=== PATIENT | female | born 1995 | race African-American/Black ===

== ENCOUNTER 2019-02-09 12:53 | Emergency (ER) | payer OTHER ==
[~2019-02-09] VITALS: Ht 149.9 cm; Wt 50.9 kg
[2019-02-09] MEDS ORDERED: CELE1CAP4 PO (12:59)
[2019-02-09] MEDS ORDERED: ACETAMINOPHEN 325 MG TAB PO ONE (14:30)
[2019-02-09 14:49] LABS: EOS # 0.1 10^3/uL (0.0-0.50); EOS % 3.6 % (0.0-3.0); HEMATOCRIT 40.1 % (36.0-47.0); HEMOGLOBIN 13.5 g/dl (12.0-15.5); LYMPH # 1.9 10^3/uL (1.5-6.5); LYMPH % 48.3 % (24.0-44.0); MEAN CORPUSCULAR HEMOGLOBIN 32.1 pg (27.0-33.0); MEAN CORPUSCULAR HGB CONC 33.7 g/dl (32.0-36.5); MEAN CORPUSCULAR VOLUME 95.2 fl (80.0-96.0); MONO # 0.4 10^3/uL (0.0-0.8); NEUTROPHILS # 1.5 10^3/uL (1.8-7.7); NEUTROPHILS % 37.1 % (36.0-66.0); PLATELET COUNT, AUTOMATED 351 10^3/uL (150-450); RED BLOOD COUNT 4.21 10^6/uL (4.00-5.40); WHITE BLOOD COUNT 3.9 10^3/uL (4.0-10.0)
[2019-02-09 15:14] LABS: ALBUMIN 4.2 GM/DL (3.2-5.2); ALT/SGPT 16 U/L (12-78); BILIRUBIN,DIRECT 0.3 MG/DL (0.0-0.2); BLOOD UREA NITROGEN 9 MG/DL (7-18); CARBON DIOXIDE LEVEL 26 MEQ/L (21-32); CHLORIDE LEVEL 105 MEQ/L (98-107); CREATININE FOR GFR 0.72 MG/DL (0.55-1.30); GLOMERULAR FILTRATION RATE > 60.0 (>60); GLUCOSE, FASTING 75 MG/DL (70-100); LIPASE 86 U/L (73-393); SODIUM LEVEL 139 MEQ/L (136-145); TOTAL PROTEIN 7.4 GM/DL (6.4-8.2)
[2019-02-09] MEDS ORDERED: KETO10TAB PO (16:36)
[2019-02-09 16:41] VITALS: BP 117/72
--- NOTE | 2019-02-09 17:06 | REP ---
HISTORY: Right lower quadrant pain. Transvesical and transvaginal imaging was obtained. The uterus measures 6.9 x 2.7 x 3.9 cm. The parenchymal echo pattern is normal. The endometrial echo complex is normal measuring 7 mm in thickness. The right ovary measures 2.5 x 2.6 x 2.4 cm and is within normal limits. The left ovary measures 2.5 x 2.2 x 1.9 cm and is within normal limits. The right ovarian RI is 0.67 and the left ovarian RI is 0.51. The urinary bladder measures 2 x 2 x 5 cm. IMPRESSION: Pelvic ultrasonography is within normal limits. Electronically Signed by Anjel Caldera DO 02/09/2019 06:01 P
== END 2019-02-09 16:44 | disposition home or self-care (01) ==
LOC: M ED 12:53
DX: N83.291 Other ovarian cyst, right side (principal); N80.9 Endometriosis, unspecified; Z79.899 Other long term (current) drug therapy

== ENCOUNTER 2019-09-12 07:28 | Day surgery (SDC) | payer OTHER ==
[~2019-09-12] VITALS: Ht 149.9 cm; Wt 52.6 kg
[~2019-09-12 07:28] MED LIST: CELE1CAP4 PO; IBUP-1022 PO; KETO10TAB PO; LIDOCAINE 1% MDV 20ML VIAL SQ PRN; LR 1,000 ML IV ONE
[2019-09-12] MEDS ORDERED: BUPIVACAINE HCL 0.25% 30 ML VIAL As Ordered ONE (08:03)
[2019-09-12] MEDS ORDERED: SILVER NITRATE APPLICATOR As Ordered ONE (08:03)
[2019-09-12] MEDS ORDERED: METHYLENE BLUE 0.5% (5MG/ML) 10 ML AMP (PROVAYBLUE)(Q9968 PER 1MG) As Ordered ONE (08:03)
[2019-09-12 08:08] LABS: HEMATOCRIT 40.5 % (36.0-47.0); HEMOGLOBIN 13.1 g/dl (12.0-15.5); MEAN CORPUSCULAR HEMOGLOBIN 30.1 pg (27.0-33.0); MEAN CORPUSCULAR HGB CONC 32.3 g/dl (32.0-36.5); MEAN CORPUSCULAR VOLUME 93.1 fl (80.0-96.0); PLATELET COUNT, AUTOMATED 398 10^3/uL (150-450); RED BLOOD COUNT 4.35 10^6/uL (4.00-5.40); WHITE BLOOD COUNT 4.3 10^3/uL (4.0-10.0)
[2019-09-12] MEDS ORDERED: LIDOCAINE 2% INJ 100 MG/5 ML SDV (FOR ANES.) As Ordered ONE (08:11)
[2019-09-12] MEDS ORDERED: ROCURONIUM BROMIDE 50 MG/5 ML VIAL As Ordered ONE (08:11)
[2019-09-12] MEDS ORDERED: propofoL 200 MG/20 ML VIAL As Ordered ONE (08:11)
[2019-09-12] MEDS ORDERED: fentaNYL 250 MCG/5 ML INJECTION (J3010) As Ordered ONE (08:12)
[2019-09-12] MEDS ORDERED: MIDAZOLAM INJ 2 MG/2 ML VIAL (J2250) As Ordered ONE (08:12)
[2019-09-12] MEDS ORDERED: METOCLOPRAMIDE INJ 10MG/2ML VIAL (J2765) As Ordered ONE (09:32)
[2019-09-12] MEDS ORDERED: ONDANSETRON 4MG/2ML VIAL (J2405) As Ordered ONE ×2 (09:32→11:09)
[2019-09-12] MEDS ORDERED: dexameTHASONE 4 MG/ML 1ML VIAL (J1100) As Ordered ONE (09:32)
[2019-09-12] MEDS ORDERED: KETOROLAC 60 MG/2 ML VIAL (J1885) As Ordered ONE (09:32)
[2019-09-12] MEDS ORDERED: ACETAMINOPHEN 1000MG 100ML IV BTL (OFIRMEV) (J0131 PER 10MG) As Ordered ONE (09:33)
[2019-09-12] MEDS ORDERED: SUGAMMADEX SODIUM 500 MG/5 ML VIAL (BRIDION) As Ordered ONE (09:40)
[2019-09-12] MEDS ORDERED: oxyCODONE 5MG TAB As Ordered ONE (11:34)
[2019-09-12] MEDS ORDERED: fentaNYL 100 MCG/2 ML INJECTION (J3010) As Ordered ONE (11:34)
[2019-09-12] MEDS: oxyCODONE 5MG TAB PO PRN ×2 (11:35→13:39)
[2019-09-12] MEDS: fentaNYL 100 MCG/2 ML INJECTION (J3010) IV PRN ×2 (11:35→11:47)
[2019-09-12] MEDS ORDERED: HYDROMORPHONE HCL 0.5 MG/ 0.5 ML SYRINGE (J1170 PER 1) IV PRN (11:45)
[2019-09-12] MEDS ORDERED: LR 1,000 ML IV SCH (11:45)
[2019-09-12] MEDS ORDERED: ONDANSETRON 4MG/2ML VIAL (J2405) IV PRN (11:45)
[2019-09-12] MEDS ORDERED: FUROSEMIDE 20 MG/2 ML VIAL (J1940) As Ordered ONE (12:16)
[2019-09-12] MEDS ORDERED: FUROSEMIDE 20 MG/2 ML VIAL (J1940) IV ONE (12:30)
--- NOTE | 2019-09-12 12:38 | REP ---
CHEST, SINGLE VIEW: Single view of the chest is performed. There is linear discoid atelectasis in the lung bases. No infiltrate is seen and there is no pneumothorax. Heart is normal in size and the mediastinal silhouette is unremarkable. Electronically Signed by Karsten Blake MD 09/12/2019 01:01 P
[2019-09-12] MEDS ORDERED: diphenhydrAMINE INJ 50MG/ML VIAL (J1200) As Ordered ONE (13:11)
[2019-09-12] MEDS ORDERED: diphenhydrAMINE INJ 50MG/ML VIAL (J1200) IV ONE (13:30)
[2019-09-12 14:45] VITALS: BP 107/56
--- NOTE | 2019-09-12 18:34 | POST-OPPD ---
Postoperative Procedure Note Date Of Procedure: Sep 12, 2019 PREOPERATIVE DIAGNOSIS: 1) chronic pelvic pain 2) infertility POSTOPERATIVE DIAGNOSIS: 1) chronic pelvic pain 2) infertility 3) endometriosis 4) occluded left fallopian tube. FINDINGS: see below PROCEDURE: Operative laparoscopy with tissue biopsy and chromopertubation SURGEON: Dennis Dominguez DO CUSTOMER RELATIONS CONSULTANT: none ANESTHESIA: general anesthesia SPECIMENS: left anterior cul-de-sac peritoneum, left uterosacral, posterior cul-de-sac ESTIMATED BLOOD LOSS: 100cc REPLACED: 1500cc LR DRAINS: 50cc urine COMPLICATIONS: none POSTOPERATIVE CONDITION: none Detailed description of procedure: Indication: Patient is a 24 yo G0 with infertility and chronic pelvic pain desiring surgical evaluation of the pelvis. Findings: Bimanual: anteverted uterus, mobile Laparoscopic findings: Endometriotic lesions and scarred peritoneum along medial left uterosacral ligament, posterior cu-de-sac and left anterior cul-de-sac. Uterus is pulled to left side by scar tissue. Normal appearing uterus, bilateral ovaries and fallopian tubes. Liver edge and gallbladder normal appearing. Chromopertubation shows fill and spill of right fallopian tube. No fill and spill of left fallopian tube. Description of procedure: The risks, benefits, indications and alternatives of the procedure were reviewed with the patient and informed written consent was obtained. The patient was taken to the operating room with IV running. She was placed under general anesthesia with endotracheal tube. Arms tucked. Patient placed in lithotomy. The abdomen, vagina and perineum were prepped and draped in the usual sterile fashion. Mathew inserted. Uterus sounds to 7cm. Zumi uterine manipulator placed. Small incision made in umbilicus. Veres needle introduced. Saline drop test confirmed intraabdominal placement. Abdomen insufflated with CO2. Five mm trocar introduced under direct visualization. Surveys reviews no bowel injury or bleeding. Two 5mm ports placed left lower abdomen with direct visualization. Findings as above. Chromopertubation performed using methylene blue mixed with saline. Sharp peritoneal stripping performed around area of scarred tissue and endometriotic lesions. tissue sent to pathology. Cautery and Blaine used for hemostasis. Pelvis irrigated and suctioned. Port sites visualized after removal without bleeding. Abdomen desuflated. Camera and instruments removed from abdomen. Incision sites closed with 4-O monocryl and dermabond. Mathew and uterine manipulator removed from the vagina. Count correct x 2. Patient was taken out of OR in stable condition. DO NEERAJ Dominguez LUAT N. DO Sep 12, 2019 11:56
== END 2019-09-12 15:23 | disposition home or self-care (01) ==
LOC: M SDC 07:28
PROVIDERS: ATTEND Obstetrics & Gynecology
DX: N97.1 Female infertility of tubal origin (principal); N80.0 Endometriosis of uterus
CPT/HCPCS: 36415; 58350; 58578; 71045; 81025; 85027; 86850; 86900; 86901; 88305; J0131; J1100; J1885; J1940; J2250; J2405; J2765; J3010; Q9968

== ENCOUNTER → 2020-08-11 | Outpatient (CLI) | payer SELFPAY ==
[~2020-08-11] MED LIST changes: -LIDOCAINE 1% MDV 20ML VIAL SQ PRN; -LR 1,000 ML IV ONE; +MULTTAB20 PO
== END ==
LOC: M LABSMTC 09:12
PROVIDERS: ATTEND Pediatrics
DX: Z20.822 Contact with and (suspected) exposure to COVID-19 (principal)

== ENCOUNTER → 2020-09-27 | Outpatient (CLI) | payer OTHER ==
--- NOTE | 2020-09-27 09:55 | REP ---
INDICATION: LT INVERTED NIPPLE FOR 9 MONTH WITH INTERMITTENT PAIN. COMPARISON: None TECHNIQUE: Real-time sonographic evaluation of left breast performed. FINDINGS: At the 10 o'clock position of the left breast 4 cm from the nipple there is a hypoechoic nodule which measures 1.3 x 0.8 x 1.4 cm. Is mildly lobulated. There is internal blood flow with Doppler evaluation. In the retroareolar region there is a lobulated hypoechoic nodule which measures 1.3 x 0.9 x 1.5 cm. This also demonstrates blood flow internally with Doppler evaluation. IMPRESSION: BIRADS/ACR category 4, suspicious ultrasound left breast. 2 hypoechoic nodules are identified demonstrating internal blood flow compatible with solid lesions. One is located at 10 o'clock position and the other is retroareolar. Recommend ultrasound-guided biopsy of both nodules. RECOMMENDATION: As above. <Electronically signed by Karsten Blake > 09/27/20 0951
== END ==
LOC: M WHC 06:59
PROVIDERS: ATTEND Obstetrics & Gynecology
DX: O99.891 Other specified diseases and conditions complicating pregnancy (principal); O00-O9A Pregnancy, childbirth and the puerperium; R92.8 Other abnormal and inconclusive findings on diagnostic imaging of breast; N64.4 Mastodynia

== ENCOUNTER → 2020-10-22 | Outpatient (CLI) | payer OTHER ==
[2020-10-22 09:04] VITALS: BP 110/78
--- NOTE | 2020-10-22 16:54 | REP ---
INDICATION: 2 HYPOECHOIC NODULES,US GUIDED BIOPSY X2. COMPARISON: None. TECHNIQUE: The procedure was performed under the direct supervision of Dr. Blake. The patient has a history of a 1.3 x 0.8 x 1.4 cm hypoechoic nodule at the 10 o'clock position of the left breast and a 1.3 x 0.9 x 1.5 cm lobulated hypoechoic nodule in the retro-areolar region seen on a previous ultrasound dated 09/27/2020. Both nodules are requested for biopsy The risks and benefits of the procedure were explained to the patient and informed consent was obtained. The 2 nodules were localized using ultrasound guidance. The skin was prepped and draped in a sterile fashion. The nodule at the 10 o'clock position was addressed 1st. 1% lidocaine was used as a local anesthetic. Using ultrasound guidance a 14 gauge coaxial needle biopsy system was inserted and 6 core biopsy samples were obtained. A marker clip (HydroMARK shape 3) was placed at the biopsy site. The nodule in the retro-areolar region was then addressed. 1% lidocaine was used as a local anesthetic. Using ultrasound guidance a 14 gauge coaxial needle biopsy system was inserted and 6 core biopsy samples were obtained. A marker clip (HydroMARK shape 4) was placed at the biopsy site. The patient tolerated the procedure well and there were no immediate complications. After the appropriate amount of monitored convalescence, the patient was discharged from the department. FINDINGS: None IMPRESSION: Ultrasound-guided left breast biopsy with marker clip placement. 10 o'clock position (HydroMARK shape 3) Retro-areolar (HydroMARK shape 4) <Electronically signed by Sedrick Ramirez > 10/22/20 [id number] <Electronically signed by Karsten Blake > 10/22/20 0901
== END ==
LOC: M WHCPRO 06:20
PROVIDERS: ATTEND Obstetrics & Gynecology
DX: O26.893 Other specified pregnancy related conditions, third trimester (principal); D24.2 Benign neoplasm of left breast; O92.79 Other disorders of lactation; Z3A.32 32 weeks gestation of pregnancy

== ENCOUNTER 2020-11-11 21:22 | Inpatient (IN) | payer OTHER ==
[~2020-11-11] VITALS: Ht 149.9 cm; Wt 61.5 kg
[2020-11-11 21:43] VITALS: BP 128/77
[2020-11-11] MEDS ORDERED: LIDOCAINE 1% MDV 20ML VIAL INFIL PRN (22:10)
[2020-11-11] MEDS ORDERED: OXYTOCIN DRIP 30 UNITS in IV 1 EA IV PRN (22:10)
[2020-11-11] MEDS ORDERED: LACTATED RINGER'S 1000 ML IV STA (22:10)
[2020-11-11] MEDS ORDERED: PENICILLIN G POTASSIUM IV 5 MU in D5W MINI-BAG PLUS 100 ML IV STA (22:10)
--- NOTE | 2020-11-11 22:49 | HPEPDOC ---
Obstetrical History & Physical General Date of Admission November 11, 2020 at 22:12 History of Present Illness 25 yo at 36+5 weeks gestation by LMP of [id number] c/w 9+0 week presented to L&D with the complaint of a gush of clear fluid about an hour ago followed by continuous leaking ever since. She also endorses intermittent contractions. She denies any bleeding. She endorses movement. Chief Complaint: LOF, pre-term Information Provided By: Patient Age: 25 : 3 Term: 0 Pre-term: 0 Abortions: 2 Livin Care Care: Good Care Dating Final EDC: Dec 04, 2020 Final EDC for Daily Update: Dec 04, 2020 Final EDC by: LMP LMP: Feb 28, 2020 (SHAWN of [id number] set by LMP of [id number] c/w 9+0 week ) Antepartum Course Diagnos(e)s Endometriosis? 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) Past Medical History Medical History Endometriosis Chronic back pain Surgical History: Appendectomy, Sagle teeth Family History Significant Family History: No pertinent family hx Social History Marital Status: Family situation: Spouse/partner home Psychosocial History: No pertinent psych hx * Smoker: non-smoker Drugs: denies Imunizations Tdap status: current Influenza Status: current Allergies Coded Allergies: No Known Drug Allergies (Verified Allergy, Unknown, 10/22/20) Medications Scheduled No122/Iron/Folic Acid ( Multi Tablet) 1 Each Tablet, 1 TAB PO DAILY Physical Examination Physical Examination GENERAL: Alert and oriented times three. ABDOMEN: Gravid and non-tender to touch. FETUS: Is vertex (VTX) by sterile vaginal examination (SVE) EXTREMITIES: No edema. 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) Glucose Tolerance Test: 107 Anatomy Ultrasound Placenta Location: Anterior Normal Anatomy: Yes Placenta Previa: No Steroid Therapy Steroid Therapy: Yes Date #1: November 11, 2020 Reason premature rupture of membranes Vaginal Examination Dilation: 1cm Effacement: 50% Station: -2 Cervical Consistency: Soft Cervical Position: Middle Presentation: Cephalic presentation Position: Vertex (occiput) Assessment Heart Rate (FHR): 140 Variability: Moderate Accelerations: Positive Decelerations: None Tocometer Contractions: Yes Frequency: irregular Strength: palpated as moderate Assessment/Plan Assessment 25 yo at 36+5 weeks gestation presented to L&D with premature rupture of membranes. Plan Admit. Apply IV fluids. GBS UNK; will start PCN for GBS prophylaxis. Regular diet. BTMZ IM. If labor does not begin spontaneously will start pitocin. Patient candidate for IV analgesia and/or epidural as desired. Anticipate . Labor and Delivery Counseling Vaginal / Operative vaginal delivery / C section counseling We will deliver your baby through the vagina with possible assistance of forceps or vacuum device if needed for maternal or indications. Forceps and vacuum are devices that can assist with vaginal delivery when normal pushing efforts cannot achieve delivery on their own or when delivery is needed in an emergency for baby's well-being. Medications may be required to induce or augment (help) your labor in order to achieve a vaginal delivery. An episiotomy may be required to help your baby to delivery vaginally. You may also require repair of any lacerations or tears of your vagina or vulva that are caused by delivery. In some cases, emergencies can occur that require an emergency section delivery so quickly that there may not be enough time to stop and complete consent forms for section. Understand that if this occurs, your providers will discuss the need for a section with you before they proceed with surgery. section is the delivery of your baby through an incision in your abdomen. In some situations, section may be safer to mom and baby than continuing labor and is only performed when clinically indicated. Risks of vaginal delivery include but are not limited to: Bleeding, infection, injury to the vagina, pelvic structures, injury to baby, damage to the uterus, reactions to anesthesia, uterine rupture, risk of hysterectomy for life threatening bleeding, or . Medications used to induce or augment labor may increase your risk for infection, uterine tachysystole, uterine rupture, heart rate abnormalities, need for emergency delivery or possible hysterectomy, and hemorrhage. Additional risks for use of forceps and vacuum include: increased risk of perineal and vaginal lacerations, risk of urinary or bowel incontinence, increased risk of injury to baby with b ruising, scratches, hematomas on the head, or intracranial bleeding. Ms. Raza appears to understand these risks and elects to proceed with her labor at this location. She also consents to a blood transfusion if necessary. All questions answered. DO GAYLE Ballesteros CHRISTOPHER J. DO November 11, 2020 22:49
[2020-11-11] MEDS: BETAMETHASONE SOLUSPAN 6MG/ML 5ML VIAL (J0702 PER 3MG) IM SCH (22:53)
[2020-11-11] MEDS: LR 1,000 ML IV SCH (23:00)
[2020-11-11 23:06] LABS: HEMATOCRIT 30.7 % (36.0-47.0); HEMOGLOBIN 9.7 g/dl (12.0-15.5); MEAN CORPUSCULAR HEMOGLOBIN 26.3 pg (27.0-33.0); MEAN CORPUSCULAR HGB CONC 31.6 g/dl (32.0-36.5); MEAN CORPUSCULAR VOLUME 83.2 fl (80.0-96.0); PLATELET COUNT, AUTOMATED 311 10^3/uL (150-450); RED BLOOD COUNT 3.69 10^6/uL (4.00-5.40); WHITE BLOOD COUNT 7.2 10^3/uL (4.0-10.0)
[2020-11-12] VITALS (68 sets, daily range): BP systolic 96–183; BP diastolic 54–98
[2020-11-12] MEDS ORDERED: FENTANYL 2MCG/ML ROPIVACAINE 0.2% IN 0.9% NACL 100ML IVBAG As Ordered ONE (00:45)
[2020-11-12] MEDS ORDERED: REFRIGERATOR IV KEYS XX PRN (02:15)
[2020-11-12] MEDS ORDERED: LACTATED RINGER'S 1000 ML IV PRN (02:15)
[2020-11-12] MEDS ORDERED: EPIDURAL COMMENT XX SCH (02:15)
[2020-11-12] MEDS ORDERED: EPIDURAL/PCA KEYS XX PRN (02:15)
[2020-11-12] MEDS ORDERED: NALOXONE INJ 0.4MG/1ML VIAL (J2310 PER 1MG) IV PRN (02:15)
[2020-11-12] MEDS ORDERED: ONDANSETRON 4MG/2ML VIAL IV PRN (02:15)
[2020-11-12] MEDS ORDERED: ePHEDrine SULFATE 25 MG/5 ML(5MG/ML) SYRINGE IV PRN (02:15)
[2020-11-12] MEDS ORDERED: diphenhydrAMINE 50MG/ML VIAL (J1200) IV PRN (02:15)
[2020-11-12] MEDS: FENTANYL/ROPIVACAINE/NACL BAG 100 ML EPIDURAL SCH ×2 (02:53→11:00)
[2020-11-12] MEDS: PENICILLIN G POTASSIUM IV 2.5 MU in IV 1 EA IV SCH ×3 (02:57→11:01)
--- NOTE | 2020-11-12 05:55 | IPNPDOC ---
Text Note Date of Service The patient was seen on 11/12/20. NOTE Patient comfortable with her epidural in place. Cervix: 9/C/-1 per RN exam. FHR Cat I with moderate variability, +accels. Marleen is progressing well without pitocin. She is s/p 2 doses of PCN. Continue current management. Garrick VS,Yoel, I+O VS, Fishbone, I+O Laboratory Tests 11/11/20 22:43 Vital Signs Date Time Temp Pulse Resp B/P (MAP) Pulse Ox O2 Delivery O2 Flow Rate FiO2 11/12/20 01:57 70 18 123/72 (89) 11/12/20 00:50 97.8 I&O- Last 24 Hours up to 6 AM 11/12/20 05:59 Output Total 1125 ml Balance -1125 ml JUDD ARAUJO DO November 12, 2020 05:55
[2020-11-12] MEDS ORDERED: OXYTOCIN 30 UNITS IN 0.9% NaCl 500ML IV BAG (J2590) As Ordered ONE (06:07)
[2020-11-12] MEDS: LR 1,000 ML IV SCH ×3 (07:07→14:58)
--- NOTE | 2020-11-12 09:17 | IPNPDOC ---
Obstetrical Progress Note Date of Service November 12, 2020 Subjective 25 yo at 36w6d with SHAWN of 04 DEC 2020 is admitted for PPROM. She is comfortable with her epidural. She denies headache, chest pain, RUQ pain, and visual changes. She has supportive family at the bedside. Objective Vital Signs Date Time Temp Pulse Resp B/P (MAP) Pulse Ox O2 Delivery O2 Flow Rate FiO2 11/12/20 01:57 70 18 123/72 (89) 11/12/20 00:50 97.8 Trial push with minimal head descent and patient does not have urge to push at this time. Assessment Heart Rate (FHR): 120 Variability: Minimal Accelerations: Present Decelerations: None Tocometer Contractions: Yes Frequency: other (every 3-5 minutes) Sterile Vaginal Examination Dilation: complete Effacement (%): 100% Station: +1 Postion/Presentation: Cephalic presentation Assessment and Plan Age: 25 : 3 Term: 0 Pre-term: 0 Abortions: 2 Livin Weeks & Days 36w6d Status: Reassuring Group B Streptococcus: Unknown Anticipate: Vaginal Delivery Additional Comments Recommended to labor down at this time and will start pushing in 1 hour or sooner if she feels the urge to push CAMERON TOVAR CNM November 12, 2020 09:17
[2020-11-12 09:41] LABS: HEMATOCRIT 33.4 % (36.0-47.0); HEMOGLOBIN 10.4 g/dl (12.0-15.5); MEAN CORPUSCULAR HEMOGLOBIN 26.2 pg (27.0-33.0); MEAN CORPUSCULAR HGB CONC 31.1 g/dl (32.0-36.5); MEAN CORPUSCULAR VOLUME 84.1 fl (80.0-96.0); PLATELET COUNT, AUTOMATED 306 10^3/uL (150-450); RED BLOOD COUNT 3.97 10^6/uL (4.00-5.40); WHITE BLOOD COUNT 12.1 10^3/uL (4.0-10.0)
[2020-11-12 10:12] LABS: ALT/SGPT 11 U/L (12-78); BILIRUBIN,TOTAL 0.5 MG/DL (0.2-1.0); CREATININE FOR GFR 0.71 MG/DL (0.55-1.30); GLOMERULAR FILTRATION RATE > 60.0 (>60); LDH LACTATE DEHYDROGENASE 247 U/L (84-246); URIC ACID 5.6 MG/DL (2.6-6.0)
[2020-11-12] MEDS ORDERED: ACETAMINOPHEN TAB 650MG DOSE (2X325MG) PO PRN (11:35)
[2020-11-12] MEDS ORDERED: METHYLERGONOVINE MALEATE 0.2 MG TAB PO PRN (11:35)
[2020-11-12] MEDS ORDERED: MEASLES,MUMPS,RUBELLA VACCINE INJ (MMR-II) (90707) SC SCH (11:35)
[2020-11-12] MEDS ORDERED: RHOGAM 300 MCG (1500 IU) INJ (J2790) IM SCH (11:35)
[2020-11-12] MEDS ORDERED: IBUPROFEN 600MG TAB PO PRN (11:35)
[2020-11-12] MEDS ORDERED: PROMETHAZINE 25 MG TAB PO PRN (11:35)
[2020-11-12] MEDS ORDERED: DIBUCAINE 1% OINTMENT 30GM TOP PRN (11:35)
[2020-11-12] MEDS ORDERED: ACETAMINOPHEN 500 MG TAB PO PRN (11:35)
--- NOTE | 2020-11-12 11:46 | DNPDOC ---
[facility] Delivery Note Delivery Note Date of the procedure: 12 NOV 2020 Preoperative diagnosis: 1. 25 y/o at 36w6d 2. Active labor 3. GBS unknown 4. O positive 5. PPROM 6. 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 25 y/o G3 now P0121 at 36w6d 2. Active labor 3. GBS unknown 4. O positive 5. PPROM 6. CF carrier, FOB negative Procedure: Delivering Provider: TSERING Perkins CNM, [facility] Cash Room Clerk Back-up: Cody Fritz MD Anesthesia: Epidural EBL: 150 ml Specimens: Cord blood collected. Findings: Live female weighing 5 lb 13 oz, 2640 grams with Apgars of 8 and 9 at 1 and 5 minutes respectively. Complications: delivery Details of the procedure: The patient presented complaining of leaking of clear fluid and was found to be PPROM'd. Patient was 1 cm dilated and was then admitted to L&D. Labor progressed without Pitocin and membranes were ruptured spontaneously for clear fluid.. The patient progressed to fully dilated and entered the second stage of labor, at which point she began to push over an intact perineum. The head was then delivered. The nuchal cord was not noted. The rest of the was delivered. The infant was placed on maternal abdomen and the cord was doubly clamped and cut. Cord blood was collected and a 3 vessel cord was noted. Manual exploration of the uterus was not performed. Uterine tone was firm. Perineum was inspected and no laceration found. Cervical exam was normal. Rectal exam was not noted. Sponge, instrument, and needle counts were correct. The patient tolerated the procedure well and is stable in recovery. Note was written and electronically signed by: TSERING Perkins CNM, [facility] LOPEZ CNM November 12, 2020 11:42
[2020-11-12] MEDS ORDERED: LABETALOL 100MG/20ML VIAL IV STA (12:43)
[2020-11-12] MEDS: LABETALOL 100MG TAB PO SCH ×2 (13:00→21:00)
[2020-11-12] MEDS ORDERED: MAG Sulf (L&D) 4 GM/100 ML 4 GM in IV 1 EA IV ONE (13:00)
[2020-11-12] MEDS: MAG Sulf (OBGYN) 20GM/500ML 20,000 MG in IV 1 EA IV SCH (13:35)
--- NOTE | 2020-11-12 13:46 | IPNPDOC ---
Obstetrical Progress Note Date of Service November 12, 2020 Subjective 25 yo s/p started having severe range BP during her recovery period. She denies headache, chest pain, RUQ pain, and visual changes at this time. She was given IV labetalol x1. Magnesium sulfate was started and she will also start PO labetalol 100 mg BID. She has no complaints at this time. I discussed with her and her family the plan for monitoring PP Pre-eclampsia, magnesium sulfate x24 hours, starting oral labetalol BID, and BP check in 1 week in the clinic. She verbalized understanding and is without any further questions at this time. Objective Vital Signs Date Time Temp Pulse Resp B/P (MAP) Pulse Ox O2 Delivery O2 Flow Rate FiO2 11/12/20 12:59 84 162/77 11/12/20 09:22 97.6 18 Assessment and Plan Age: 25 : 3 Term: 0 Pre-term: 1 Abortions: 2 Livin Additional Comments Discussed patient status and plan with Dr. Fritz, who agrees with the plan. CAMERON TOVAR CNM November 12, 2020 13:46
[2020-11-12] MEDS: BETAMETHASONE SOLUSPAN 6MG/ML 5ML VIAL (J0702 PER 3MG) IM SCH (21:39)
[2020-11-12] MEDS: DOCUSATE SODIUM 100MG CAPSULE PO SCH (21:44)
[2020-11-12] MEDS: IBUPROFEN 800 MG TAB PO PRN (22:41)
[2020-11-13] VITALS (27 sets, daily range): BP systolic 83–140; BP diastolic 47–82
[2020-11-13 01:05] LABS: HEMATOCRIT 29.6 % (36.0-47.0); HEMOGLOBIN 9.2 g/dl (12.0-15.5); MEAN CORPUSCULAR HEMOGLOBIN 26.1 pg (27.0-33.0); MEAN CORPUSCULAR HGB CONC 31.1 g/dl (32.0-36.5); MEAN CORPUSCULAR VOLUME 83.9 fl (80.0-96.0); PLATELET COUNT, AUTOMATED 295 10^3/uL (150-450); RED BLOOD COUNT 3.53 10^6/uL (4.00-5.40); WHITE BLOOD COUNT 23.1 10^3/uL (4.0-10.0)
[2020-11-13] MEDS: MAG Sulf (OBGYN) 20GM/500ML 20,000 MG in IV 1 EA IV SCH (01:53)
[2020-11-13] MEDS: LR 1,000 ML IV SCH (02:00)
--- NOTE | 2020-11-13 06:39 | IPNPDOC ---
Text Note Date of Service The patient was seen on 11/13/20. NOTE Item Value Date Time White Blood Count 23.1 10^3/uL H 11/13/20 0100 Red Blood Count 3.53 10^6/uL L 11/13/20 0100 Hemoglobin 9.2 g/dl L 11/13/20 0100 Hematocrit 29.6 % L 11/13/20 0100 Mean Corpuscular Volume 83.9 fl 11/13/20 0100 Mean Corpuscular Hemoglobin 26.1 pg L 11/13/20 0100 Mean Corpuscular Hemoglobin Concent 31.1 g/dl L 11/13/20 0100 Red Cell Distribution Width 14.9 % H 11/13/20 0100 Platelet Count 295 10^3/uL 11/13/20 0100 Nucleated Red Blood Cells % (auto) 0.0 % 11/13/20 010 White Blood Count 12.1 10^3/uL H 11/12/20 0904 Red Blood Count 3.97 10^6/uL L 11/12/20 0904 Hemoglobin 10.4 g/dl L 11/12/20 0904 Hematocrit 33.4 % L 11/12/20 0904 Mean Corpuscular Volume 84.1 fl 11/12/20 0904 Mean Corpuscular Hemoglobin 26.2 pg L 11/12/20 0904 Mean Corpuscular Hemoglobin Concent 31.1 g/dl L 11/12/20 0904 Red Cell Distribution Width 14.6 % H 11/12/20 0904 Platelet Count 306 10^3/uL 11/12/20 0904 Nucleated Red Blood Cells % (auto) 0.0 % 11/12/20 0904 Nucleated Red Blood Cells % (auto) 0.0 % 11/11/20 2243 Platelet Count 311 10^3/uL 11/11/20 2243 Red Cell Distribution Width 14.6 % H 11/11/20 2243 Mean Corpuscular Hemoglobin Concent 31.6 g/dl L 11/11/203 Mean Corpuscular Hemoglobin 26.3 pg L 11/11/203 Mean Corpuscular Volume 83.2 fl 11/11/20 2243 Hematocrit 30.7 % L 11/11/20 2243 Hemoglobin 9.7 g/dl L 11/11/20 2243 Red Blood Count 3.69 10^6/uL L 11/11/202242 White Blood Count 7.2 10^3/uL 11/11/202242 Vital Signs Label Value Date Time Patient Temperature 98.0 degrees F 11/13/20 0608 Temperature Source Temporal 11/13/20 0608 Pulse 76 11/13/20 0608 Respiratory Rate 18 bpm 11/13/20 0608 Blood Pressure Assessment 108/57 (74) 11/13/20 0608 Source Automatic Cuff (NIBP) Blood Pressure Assessment 119/67 (84) 11/13/20 0538 Source Automatic Cuff (NIBP) Respiratory Rate 18 bpm 11/13/20 0538 Pulse 85 11/13/20 0538 Pulse 80 11/13/20 0508 Respiratory Rate 18 bpm 11/13/20 0508 Blood Pressure Assessment 116/60 (78) 11/13/20 0508 Source Automatic Cuff (NIBP) Blood Pressure Assessment 105/62 (76) 11/13/20 0438 Source Automatic Cuff (NIBP) Pulse 91 11/13/20 0438 Respiratory Rate 18 bpm 11/13/20 0438 Blood Pressure Assessment 107/61 (76) 11/13/20 0408 Source Automatic Cuff (NIBP) Respiratory Rate 18 bpm 11/13/20 0408 Pulse 80 11/13/20 0408 11/13/20 reviewed patient progress AFTER PPROM FEMALE 5 LBS 13 OZ 2640 GRAMS 8/9 DEVELOPED SEVERE RANGE BP STARTED ON MGSO4 AND LABETALOL IV AND PO . OVER COURSE 24 HOURS BP IN NORMAL RANGE DIURESIS UP TO 500 ML PER HOUR HOLD BP MEDICATION . TODAY NO ELEVATED BP , REFLEXES BRISK NO EDEMA NO VISUAL RUQ OR HEADACHE. PLAN D/C MEDS FOR PRE E AT 1100 HOURS THIS AM MONITOR BP X 24 HOURS WITHOUT MEDICATION . VS,Fishbone, I+O VS, Fishbone, I+O Laboratory Tests 11/12/20 09:04 11/13/20 01:00 Vital Signs Date Time Temp Pulse Resp B/P (MAP) Pulse Ox O2 Delivery O2 Flow Rate FiO2 11/13/20 06:08 98.0 76 18 108/57 (74) I&O- Last 24 Hours up to 6 AM 11/13/20 05:59 Intake Total 4510 ml Output Total 7100 ml Balance -2590 ml Cody Fritz MD November 13, 2020 06:37
[2020-11-13] MEDS: PRENATAL VITAMINS CHEWABLE TABLET PO SCH (09:38)
[2020-11-13] MEDS: DOCUSATE SODIUM 100MG CAPSULE PO SCH ×2 (09:38→20:19)
[2020-11-13] MEDS: IBUPROFEN 800 MG TAB PO PRN (09:38)
[2020-11-14 02:00] VITALS: BP 135/71
[2020-11-14] MEDS ORDERED: DIBU28OI2 TOP (07:32)
[2020-11-14] MEDS ORDERED: IBUP80TA PO (07:32)
[2020-11-14] MEDS ORDERED: ACET1TAB55 PO (07:32)
--- NOTE | 2020-11-14 07:35 | DS.PDOC ---
Discharge Summary General Date of Admission November 11, 2020 at 22:12 Date of Discharge November 14, 2020 Discharge Summary HOSPITAL COURSE: Ms. Raza is a 25 yo G3 now P1 who underwent an uncomplicated on 12Nov2020 after being admitted for SROM and labor. She developed severe pre eclampsia and received 24 hours of IV magnesium. Her blood pressure ultimately normalized. Her course was otherwise unremarkable. On her day of discharge she met all appropriate discharge criteria. She was ambulating, voiding, tolerating a regular diet, and had minimal lochia. She also had no headaches, RUQ pain, visual changes, or SOB. DISCHARGE MEDICATIONS: Please see below. ALLERGIES: Please see below. PHYSICAL EXAMINATION ON DISCHARGE: VITAL SIGNS: Please see below. GENERAL: AAOX3, NAD ABDOMINAL EXAMINATION: Fundus firm at U-2. No fundal tenderness EXTREMITIES: No edema PSYCHIATRIC EXAMINATION: Affect appropriate LABORATORY DATA: Please see below. ACTIVITY: Pelvic rest for 6 weeks DIET: Regular DISCHARGE PLAN: Discharge home DISPOSITION: Discharge home on 14Nov2020 DISCHARGE INSTRUCTIONS: 1. Nothing in the vagina for 6 weeks ITEMS TO FOLLOWUP ON ON OUTPATIENT: 1. Walk in blood pressure check in the [place] office on Wednesday, 18Nov2020 2. Call to schedule a visit for 6 weeks post delivery DISCHARGE CONDITION: Stable. TIME SPENT ON DISCHARGE: Greater than 20 minutes. Judd Mccauley, Vital Signs/I&Os Vital Signs Date Time Temp Pulse Resp B/P (MAP) Pulse Ox O2 Delivery O2 Flow Rate FiO2 11/14/20 02:00 97.7 62 18 135/71 (92) Room Air 11/13/20 18:00 98 I&O- Last 24 Hours up to 6 AM 11/14/20 06:00 Intake Total 125 ml Output Total 1250 ml Balance -1125 ml Discharge Medications Scheduled No122/Iron/Folic Acid ( Multi Tablet) 1 Each Tablet, 1 TAB PO DAILY, (Reported) Scheduled PRN Acetaminophen (Acetaminophen) 325 Mg Tablet, 650 MG PO Q4HP PRN for PAIN LEVEL 1-5 Dibucaine (Dibucaine) 28 Gm Oint...g., 0 DOSE TOP Q4H PRN for PAIN Ibuprofen (Ibuprofen) 800 Mg Tablet, 800 MG PO Q8HP PRN for PAIN LEVEL 6-10 Allergies Coded Allergies: No Known Drug Allergies (Verified Allergy, Unknown, 10/22/20) JUDD MCCAULEY DO November 14, 2020 07:35
[2020-11-14] MEDS: DOCUSATE SODIUM 100MG CAPSULE PO SCH (09:00)
[2020-11-14] MEDS: PRENATAL VITAMINS CHEWABLE TABLET PO SCH (09:00)
== END 2020-11-14 10:50 | disposition home or self-care (01) | DRG 807 ==
LOC: M LDO 21:22 → M LDI 22:12 → M OBS 11-13 11:13
PROVIDERS: ADMIT Obstetrics & Gynecology; ATTEND Obstetrics & Gynecology
PROC: 10E0XZZ Delivery of Products of Conception, External Approach (ICD-10-PCS; principal; 2020-11-12)
DX: O42.013 Preterm premature rupture of membranes, onset of labor within 24 hours of rupture, third trimester (principal); Z37.0 Single live birth; Z3A.36 36 weeks gestation of pregnancy; Z14.1 Cystic fibrosis carrier; O14.15 Severe pre-eclampsia, complicating the puerperium

== ENCOUNTER → 2021-02-13 | Outpatient (CLI) | payer OTHER ==
[~2021-02-13] MED LIST changes: +ACET1TAB55 PO; +DIBU28OI2 TOP; +IBUP80TA PO
--- NOTE | 2021-02-14 04:14 | REPVR ---
PROCEDURE INFORMATION: Exam: MR Lumbar Spine Without Contrast Exam date and time: 02/13/2021 10:26 AM Age: 25 years old Clinical indication: Low back pain; Additional info: Spondylosis TECHNIQUE: Imaging protocol: Multiplanar magnetic resonance images of the lumbar spine without intravenous contrast. COMPARISON: Obs. Limited, ADRIENNE 06/11/2020 8:19 PM FINDINGS: Vertebrae: The lumbar vertebral bodies are normal in height, without abnormal subluxation. Subcentimeter foci of T1 hyperintensity are noted within the T12 and L3 vertebral bodies, consistent with hemangiomas or focal depositions of fatty marrow. Spinal cord: The distal end of the conus medullaris ends at L1, normal in position. L1-L2: There is no significant narrowing of the thecal sac or neural foramina. L2-L3: There is no significant narrowing of the thecal sac or neural foramina. L3-L4: Mild bilateral facet arthropathy, with hypertrophy of the ligamentum flavum. There is no significant narrowing of the thecal sac or neural foramina. L4-L5: Bilateral facet arthropathy with hypertrophy of the ligamentum flavum. Minimal disc bulging. No significant spinal canal stenosis. L5-S1: Bilateral facet arthropathy. Minimal disc bulging. No significant spinal canal stenosis. No significant neural foraminal narrowing bilaterally. Soft tissues: Mild swelling of the soft tissues posterior to the lumbar and lower thoracic spine. Intraperitoneal space: Trace free fluid within the pelvis. IMPRESSION: 1. Mild degenerative changes from L3-L4 through L5-S1, as described above. 2. No significant spinal canal stenosis or neural foraminal narrowing at any lumbar level. 3. Trace free fluid within the pelvis. 4. Additional findings described above. Electronically signed by: Michael Wilson On 02/14/2021 04:14:06 AM
== END ==
LOC: M PLAIMG 09:51
PROVIDERS: ATTEND Orthopaedic Surgery
DX: M51.36 Other intervertebral disc degeneration, lumbar region (principal); M51.37 Other intervertebral disc degeneration, lumbosacral region

== ENCOUNTER 2022-02-12 20:19 | Inpatient (IN) | payer OTHER ==
[~2022-02-12] VITALS: Ht 149.9 cm; Wt 64.9 kg
[2022-02-12 20:37] VITALS: BP 120/75
[2022-02-12] MEDS ORDERED: CARBOPROST TROMETHAMINE 250 MCG/ML AMP IM PRN (22:20)
[2022-02-12] MEDS ORDERED: TRANEXAMIC ACID INJection 1,000 MG in NS 100 ML IV PRN (22:20)
[2022-02-12] MEDS ORDERED: LIDOCAINE 1% MDV 20ML VIAL INFIL PRN (22:20)
[2022-02-12] MEDS ORDERED: METHYLERGONOVINE MALEATE 0.2 MG/ML VIAL (J2210) IM PRN (22:20)
[2022-02-12] MEDS ORDERED: OXYTOCIN DRIP 30 UNITS in IV 1 EA IV PRN ×6 (22:20)
[2022-02-12] MEDS ORDERED: OXYTOCIN INJ 10 UNITS/ML VIAL (J2590) IM PRN (22:20)
[2022-02-12 22:56] VITALS: BP 121/80
[2022-02-12] MEDS: LR 1,000 ML IV SCH (22:56)
[2022-02-12] MEDS ORDERED: PENICILLIN G POTASSIUM IV 5 MU in D5W MINI-BAG PLUS 100 ML IV ONE (23:00)
[2022-02-12 23:17] LABS: HEMATOCRIT 38.5 % (36.0-47.0); HEMOGLOBIN 12.8 g/dl (12.0-15.5); MEAN CORPUSCULAR HEMOGLOBIN 29.2 pg (27.0-33.0); MEAN CORPUSCULAR HGB CONC 33.2 g/dl (32.0-36.5); MEAN CORPUSCULAR VOLUME 87.7 fl (80.0-96.0); PLATELET COUNT, AUTOMATED 248 10^3/uL (150-450); RED BLOOD COUNT 4.39 10^6/uL (4.00-5.40); WHITE BLOOD COUNT 8.7 10^3/uL (4.0-10.0)
[2022-02-12] MEDS ORDERED: FENTANYL 2MCG/ML ROPIVACAINE 0.2% IN 0.9% NACL 100ML IVBAG As Ordered ONE (23:42)
[2022-02-12 23:46] VITALS: BP 111/74
[2022-02-12 23:50] VITALS: BP 138/80
[2022-02-12 23:55] VITALS: BP 119/70
[2022-02-12 23:59] VITALS: BP 117/76
[2022-02-13] VITALS (58 sets, daily range): BP systolic 92–187; BP diastolic 55–107
[2022-02-13] MEDS ORDERED: LR 500 ML IV PRN (01:00)
[2022-02-13] MEDS ORDERED: ePHEDrine SULFATE 25 MG/5 ML(5MG/ML) SYRINGE IVP PRN (01:00)
[2022-02-13] MEDS ORDERED: ONDANSETRON 4MG 2ML VIAL IV PRN (01:00)
[2022-02-13] MEDS ORDERED: diphenhydrAMINE 50MG/ML VIAL (J1200) IV PRN (01:00)
[2022-02-13] MEDS ORDERED: NALOXONE INJ 0.4MG/1ML VIAL (J2310 PER 1MG) IV PRN (01:00)
[2022-02-13] MEDS ORDERED: EPIDURAL/PCA KEYS XX PRN (01:00)
[2022-02-13] MEDS: FENTANYL/ROPIVACAINE/NACL BAG 100 ML EPIDURAL SCH ×3 (01:00→15:43)
[2022-02-13] MEDS: PENICILLIN G POTASSIUM IV 2.5 MU in IV 1 EA IV SCH ×4 (02:51→15:43)
[2022-02-13] MEDS ORDERED: OXYTOCIN INJ 10 UNITS/ML VIAL (J2590) IV PRN (07:45)
[2022-02-13] MEDS ORDERED: OXYTOCIN DRIP 30 UNITS in IV 1 EA IV SCH ×3 (08:45→18:30)
[2022-02-13] MEDS: LR 1,000 ML IV SCH (09:31)
[2022-02-13 17:51] LABS: CORD GAS HCO3 V 19.7 MEQ/L; CORD GAS PCO2 V 39.3 mmHg; CORD GAS PH V 7.317 UNITS; CORD GAS PO2 V 22.3 mmHg; CORD GAS SBC V 18.7 MEQ/L; CORD GAS TCO2 V 20.9 MEQ/L
[2022-02-13 17:53] LABS: CORD GAS ABE A -5.4; CORD GAS HCO3 A 22.3 MEQ/L; CORD GAS O2 SAT A 38.2 %; CORD GAS PCO2 A 52.4 mmHg; CORD GAS PH A 7.247 UNITS; CORD GAS PO2 A 17.6 mmHg; CORD GAS SBC A 18.8 MEQ/L; CORD GAS TCO2 A 23.9 MEQ/L
[2022-02-13] MEDS ORDERED: METHYLERGONOVINE MALEATE 0.2 MG/ML VIAL (J2210) IM PRN (18:00)
[2022-02-13] MEDS ORDERED: ANUSOL HC CREAM 30GM TOP PRN (18:00)
[2022-02-13] MEDS ORDERED: METHYLERGONOVINE MALEATE 0.2 MG TAB PO PRN (18:00)
[2022-02-13] MEDS ORDERED: DOCUSATE SODIUM 100MG CAPSULE PO PRN (18:00)
[2022-02-13] MEDS ORDERED: OXYTOCIN INJ 10 UNITS/ML VIAL (J2590) IV ONE (18:00)
[2022-02-13] MEDS ORDERED: DIBUCAINE 1% OINTMENT 30GM TOP PRN (18:00)
[2022-02-13] MEDS ORDERED: MOM 30ML SUSPENSION UDC PO PRN (18:00)
[2022-02-13] MEDS ORDERED: RHOGAM 300 MCG (1500 IU) INJ (J2790) IM SCH (18:00)
[2022-02-13] MEDS ORDERED: TRANEXAMIC ACID INJection 1,000 MG in NS 100 ML IV ONE (18:00)
[2022-02-13] MEDS ORDERED: ACETAMINOPHEN TAB 650MG DOSE (2X325MG) PO PRN (18:00)
[2022-02-13] MEDS ORDERED: LR 1,000 ML IV SCH (18:30)
[2022-02-13] MEDS ORDERED: ONDANSETRON 4MG 2ML VIAL IV ONE (19:35)
[2022-02-13] MEDS: IBUPROFEN 600MG TAB PO PRN (19:59)
[2022-02-13] MEDS: ACETAMINOPHEN 500 MG TAB PO PRN (22:08)
[2022-02-14] MEDS: IBUPROFEN 600MG TAB PO PRN ×2 (04:33→15:02)
[2022-02-14 06:00] VITALS: BP 94/54
[2022-02-14] MEDS: PRENATAL VITAMINS CHEWABLE TABLET PO SCH (07:39)
[2022-02-14 07:57] LABS: HEMATOCRIT 35.7 % (36.0-47.0); HEMOGLOBIN 11.5 g/dl (12.0-15.5); MEAN CORPUSCULAR HEMOGLOBIN 28.8 pg (27.0-33.0); MEAN CORPUSCULAR HGB CONC 32.2 g/dl (32.0-36.5); MEAN CORPUSCULAR VOLUME 89.5 fl (80.0-96.0); PLATELET COUNT, AUTOMATED 233 10^3/uL (150-450); RED BLOOD COUNT 3.99 10^6/uL (4.00-5.40); WHITE BLOOD COUNT 11.8 10^3/uL (4.0-10.0)
[2022-02-14] MEDS: ACETAMINOPHEN 500 MG TAB PO PRN ×2 (08:35→20:33)
[2022-02-14 18:00] VITALS: BP 122/74
[2022-02-15] MEDS: IBUPROFEN 600MG TAB PO PRN (04:15)
[2022-02-15] MEDS ORDERED: COLA100C5 PO (05:13)
[2022-02-15] MEDS ORDERED: IBUP80TA PO (05:13)
[2022-02-15] MEDS ORDERED: ACET1TAB55 PO (05:13)
[2022-02-15 06:00] VITALS: BP 139/73
[2022-02-15] MEDS ORDERED: MEASLES,MUMPS,RUBELLA VACCINE INJ (MMR-II) (90707) SC.IMMUN ONE (09:00)
[2022-02-15] MEDS: PRENATAL VITAMINS CHEWABLE TABLET PO SCH (10:30)
== END 2022-02-15 13:00 | disposition home or self-care (01) | DRG 807 ==
LOC: M LDO 20:19 → M LDI 22:16 → M OBS 02-13 20:36
PROVIDERS: ADMIT Obstetrics & Gynecology; ATTEND Obstetrics & Gynecology
PROC: 10E0XZZ Delivery of Products of Conception, External Approach (ICD-10-PCS; principal; 2022-02-13)
PROC: 10907ZC Drainage of Amniotic Fluid, Therapeutic from Products of Conception, Via Natural or Artificial Opening (ICD-10-PCS; 2022-02-13)
DX: O99.824 Streptococcus B carrier state complicating childbirth (principal); Z37.0 Single live birth; Z3A.39 39 weeks gestation of pregnancy

== ENCOUNTER → 2022-06-15 | Outpatient (REF) ==
[~2022-06-15] MED LIST changes: +COLA100C5 PO
== END ==
LOC: M PLALAB 11:12
PROVIDERS: ATTEND Internal Medicine
DX: R52 Pain, unspecified (principal)

== ENCOUNTER → 2023-04-19 | Outpatient (CLI) | payer OTHER | LOC: M WHC 14:00 | PROVIDERS: ATTEND Nurse Practitioner Family | DX: Z12.31 Encounter for screening mammogram for malignant neoplasm of breast (principal); N64.4 Mastodynia; R92.8 Other abnormal and inconclusive findings on diagnostic imaging of breast | CPT/HCPCS: 76642; 77066; G0279 ==